=== PATIENT | female | born 1980 | race Caucasian/White ===

== ENCOUNTER 2019-03-05 09:24 | Emergency (ER) | payer SELFPAY ==
[2019-03-05] MEDS ORDERED: Lidocaine 1% 30 ML SDV INJECT ONE (09:35)
[2019-03-05] MEDS ORDERED: Bacitracin Oint 1 GM U/D Packet TOP ONE (09:35)
[2019-03-05 09:48] VITALS: BP 101/69
[2019-03-05] MEDS ORDERED: Diphtheria,Pertussis(Acell),Tetanus Vaccine 0.5 ML SDV IM ONE (11:09)
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
== END 2019-03-05 11:41 | disposition home or self-care (01) ==
LOC: DL.ED 09:24
DX: S81.012A Laceration without foreign body, left knee, initial encounter (principal); S50.312A Abrasion of left elbow, initial encounter; F17.210 Nicotine dependence, cigarettes, uncomplicated; Z79.899 Other long term (current) drug therapy; Z23 Encounter for immunization; Z88.6 Allergy status to analgesic agent; Y08.89XA Assault by other specified means, initial encounter
CPT/HCPCS: 90471; 90715; 99283; J2001; 12001

== ENCOUNTER 2021-08-06 09:59 | Emergency (ER) | payer MEDICAID ==
[2021-08-06 10:11] VITALS: BP 119/85; PULSE 58
[2021-08-06] MEDS ORDERED: Sertraline 50 MG Tab PO ONE (10:17)
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
[2021-08-06] MEDS ORDERED: Sertraline 50 MG Tab ONE (10:22)
== END 2021-08-06 10:31 | disposition home or self-care (01) ==
LOC: DL.ED 09:59
DX: F41.9 Anxiety disorder, unspecified (principal); Z76.0 Encounter for issue of repeat prescription; Z88.5 Allergy status to narcotic agent
CPT/HCPCS: 99283; A9270

== ENCOUNTER 2021-08-25 00:55 | Emergency (ER) | payer MEDICAID ==
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
--- NOTE | 2021-08-25 01:46 | CT ---
PROCEDURE INFORMATION: Exam: CT Head Without Contrast Exam date and time: 08/25/2021 1:15 AM Age: 40 years old Clinical indication: Pain; Headache TECHNIQUE: Imaging protocol: Computed tomography of the head without contrast. Radiation optimization: All CT scans at this facility use at least one of these dose optimization techniques: automated exposure control; mA and/or kV adjustment per patient size (includes targeted exams where dose is matched to clinical indication); or iterative reconstruction. COMPARISON: CT Head wo Cont 12/22/2014 3:26 PM FINDINGS: Brain: Normal. No hemorrhage. Unremarkable white matter. No mass effect. Cerebral ventricles: No ventriculomegaly. Paranasal sinuses: Moderate mucoperiosteal thickening is seen in the right sphenoid sinus. No air-fluid level is present. The remainder of the visualized paranasal sinuses are clear. Mastoid air cells: Visualized mastoid air cells are well aerated. Bones/joints: Unremarkable. No acute fracture. Soft tissues: Unremarkable. IMPRESSION: Inflammatory changes in the right sphenoid sinus. No air-fluid level is present. 2. No acute intracranial abnormality is noted.
[2021-08-25 02:07] LABS: ANION GAP 12.1 mEq/L (7-13); CHLORIDE,CL 98 mmol/L (98-107); SODIUM,NA 133 mmol/L (136-145)
[2021-08-25 02:13] LABS: AMPHETAMINES,URINE NEGATIVE (NEGATIVE); BARBITURATES,URINE NEGATIVE (NEGATIVE); BENZODIAZEPINE,URINE NEGATIVE (NEGATIVE); MDMA (ECSTASY), URINE NEGATIVE (NEGATIVE); METHADONE,URINE NEGATIVE (NEGATIVE); METHAMPHETAMINES,URINE NEGATIVE (NEGATIVE); OPIATES,URINE NEGATIVE (NEGATIVE); OXYCODONE,URINE NEGATIVE (NEGATIVE); PHENCYCLIDINE,URINE NEGATIVE (NEGATIVE); TCA,URINE NEGATIVE (NEGATIVE)
[2021-08-25] MEDS ORDERED: hydrOXYzine HCl 25 MG Tab PO ONE (02:19)
[2021-08-25] MEDS ORDERED: Potassium Chloride 10 MEQ Tab.ER PO ONE (02:19)
[2021-08-25 02:38] VITALS: BP 89/77; PULSE 68
== END 2021-08-25 03:00 | disposition home or self-care (01) ==
LOC: DL.ED 00:55
DX: F41.9 Anxiety disorder, unspecified (principal); E87.6 Hypokalemia; Z91.19 Patient's noncompliance with other medical treatment and regimen; Z88.5 Allergy status to narcotic agent
CPT/HCPCS: 36415; 70450; 80053; 80305-QW; 85025; 99284-25; A9270-GY

== ENCOUNTER 2022-03-14 23:39 | Emergency (ER) | payer BC, MEDICAID ==
[2022-03-15] MEDS ORDERED: Sodium Chloride 0.9% 1,000 ML IV ONE (00:16)
[2022-03-15 00:50] LABS: AMPHETAMINES,URINE NEGATIVE (NEGATIVE); BARBITURATES,URINE NEGATIVE (NEGATIVE); BENZODIAZEPINE,URINE NEGATIVE (NEGATIVE); MDMA (ECSTASY), URINE NEGATIVE (NEGATIVE); METHADONE,URINE NEGATIVE (NEGATIVE); METHAMPHETAMINES,URINE NEGATIVE (NEGATIVE); OPIATES,URINE NEGATIVE (NEGATIVE); OXYCODONE,URINE NEGATIVE (NEGATIVE); PHENCYCLIDINE,URINE NEGATIVE (NEGATIVE); TCA,URINE NEGATIVE (NEGATIVE)
[2022-03-15 00:52] LABS: CHLORIDE,CL 103 mmol/L (98-107); SODIUM,NA 138 mmol/L (136-145)
[2022-03-15 00:53] LABS: ANION GAP 15.4 mEq/L (7-13); ESTIMATED GFR > 60
[2022-03-15] MEDS ORDERED: methylPREDNISolone Sodium Succinate 125 MG/2 ML SDV IVPUSH ONE (01:10)
[2022-03-15 01:40] VITALS: BP 120/76; PULSE 67
== END 2022-03-15 01:46 | disposition home or self-care (01) ==
LOC: DL.ED 23:39
DX: M54.31 Sciatica, right side (principal); M54.32 Sciatica, left side; Z88.5 Allergy status to narcotic agent
CPT/HCPCS: 36415; 80053; 80305; 80307; 81001; 83735; 85025; 96374; 99283; J2930; J7030

== ENCOUNTER 2023-10-05 06:56 | Day surgery (SDC) | payer MEDICAID ==
[2023-10-05] MEDS ORDERED: Dextrose 5%-0.45% NaCl 1,000 ML IV SCH (07:00)
[2023-10-05] MEDS ORDERED: fentaNYL 100 MCG/2 ML SDV ONE (07:20)
[2023-10-05] MEDS ORDERED: Midazolam 1 MG/ML 2 ML SDV IV ONE ×7 (07:20→07:57)
[2023-10-05] MEDS ORDERED: Midazolam 1 MG/ML 2 ML SDV ONE (07:20)
[2023-10-05] MEDS ORDERED: fentaNYL 100 MCG/2 ML SDV IV ONE ×3 (07:20→07:51)
[2023-10-05 09:40] VITALS: BP 102/59; PULSE 65
== END 2023-10-05 09:55 | disposition home or self-care (01) ==
LOC: DL.ENDO 06:56
PROVIDERS: ATTEND Internal Medicine Gastroenterology
DX: K59.00 Constipation, unspecified (principal); D12.5 Benign neoplasm of sigmoid colon; F41.9 Anxiety disorder, unspecified; F90.9 Attention-deficit hyperactivity disorder, unspecified type; G43.909 Migraine, unspecified, not intractable, without status migrainosus; Z88.5 Allergy status to narcotic agent; Z88.6 Allergy status to analgesic agent; Z91.040 Latex allergy status
CPT/HCPCS: 45385; 81025; J2250; J3010; J7042